=== PATIENT | female | born 1960 | race Caucasian/White ===

== ENCOUNTER 2017-05-28 08:18 | Day surgery (SDC) | payer OTHER ==
--- NOTE | 2017-04-29 18:53 | History and Physical ---
History & Physical Date of Service Apr 29, 2017. History & Physical 56-year-old female presents bronchoscopic evaluation for cough and history of hemoptysis PT presents today for a initial consult visit. She reports her PCP referred her for her COPD. She is still smoking, she says she is cutting back to 5 or less cigarettes a day. She was coughing up blood for months. Says she feels tight for months and feels congested. She is is coughing up yellow colored phlegm she took the last pill of the Zpak yesterday and is still on Bactrim as well as Keflex. 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 She has smoked 1/2 packs of cigarettes a day since her teens and is now down to 5 cigarettes daily. She has become progressively more dyspneic and exhibited hemoptysis sometimes blood being the only thing she sees when she coughs up. She is seen at the [facility]. PFTs from August 2016 suggest minimal obstruction. She is currently on Breo and Spiriva inhaler which she is compliant with. She does have nocturnal oxygen at 2 liters. Alpha-1 antitrypsin has been negative. She was stress testing in October 2016 but never obtained. Denies chest pain currently her sputum is purulent. She has not had a CT scan of the chest. He is extremely dyspneic walking up stairs or a grade makes her extremely symptomatic. She is currently on Bactrim and Keflex for a cellulitis of her hand and also completed a Z-Hugh. She has been on prednisone in the past. She has been tried on nystatin oral solution swish and swallow for oral candidiasis. She is on oral agents for diabetes mellitus. She suffers from depression and bipolar disorder and chronic hepatitis-C. She also uses pantoprazole for reflux.. Chest x-ray on 11/28/2016 shows no acute infiltrate. Left lower lobe pneumonia was suspected in October 2016. Active Problems 1. Anxiety (F41.9) 2. Depression 3. Bipolar disorder 4. Chronic hepatitis C (B18.2) 5. Degeneration of intervertebral disc 6. Depressed bipolar I disorder (F31.9) 7. Drug use (F19.90) 8. Hepatitis B (B19.10) 9. Hyperlipidemia (E78.5) 10. Panic disorder (F41.0) 11. PTSD (post-traumatic stress disorder) (F43.10) 12. Spinal stenosis (M48.00) 13. Asthma 14. COPD 15. On nocturnal oxygen supplementation Social History Current every day smoker (F17.200) Drug use (F19.90) Current Meds 1. Breo Ellipta 200-25 MCG/INH Inhalation Aerosol Powder Breath Activated; INHALE 1 2. Claritin 10 MG Oral Tablet; TAKE ONE TABLET BY MOUTH ONE TIME DAILY; 3. Fluticasone Propionate 50 MCG/ACT Nasal Suspension; USE 2 SPRAYS IN EACH 4. Gabapentin 800 MG Oral Tablet; TAKE 1 TABLET 3 TIMES DAILY; 5. Ipratropium-Albuterol 0.5-2.5 (3) MG/3ML Inhalation Solution; QID 6. MetFORMIN HCl - 500 MG Oral Tablet; TAKE 1 TABLET 3 TIMES DAILY WITH MEALS; 7. Naproxen 500 MG Oral Tablet; TAKE 1 TABLET 3 TIMES DAILY NEEDED; 8. Nystatin 709089 UNIT/GM External Powder; APPLY 2-3 TIMES DAILY TO AFFECTED 9. Pantoprazole Sodium 40 MG Oral Tablet Delayed Release; TAKE ONE TABLET BY 10. Spiriva HandiHaler 18 MCG Inhalation Capsule; INHALE CONTENTS OF 1 CAPSULE 11. Ventolin HFA 108 (90 Base) MCG/ACT Inhalation Aerosol Solution; INHALE 2 PUFFS Allergies 1. meloxicam 2. Morphine Derivatives 3. Penicillins 4. predniSONE Vital Signs Height: 5 ft 5 in Weight: 162 lb 4 oz BMI Calculated: 27 BSA Calculated: 1.81 Blood Pressure: 132 / 84, RUE, Sitting Heart Rate: 83 Respiration: 18 Temperature: 97.8 F O2 Saturation: 97, RA Constitutional General appearance: No acute distress, well appearing and well nourished. Eyes Conjunctiva and lids: No swelling, erythema or discharge. Pupils and irises: Equal, round and reactive to light. Ears, Nose, Mouth, and Throat External inspection of ears and nose: Normal. Otoscopic examination: Tympanic membranes translucent with normal light reflex. Canals patent without erythema. Oropharynx: Normal with no erythema, edema, exudate or lesions. Pulmonary Respiratory effort: No increased work of breathing or signs of respiratory distress. Auscultation of lungs: Abnormal. Distant but scattered rhonchi diffusely. Cardiovascular Palpation of heart: Normal PMI, no thrills. Auscultation of heart: Normal rate and rhythm, normal S1 and S2, without murmurs. Examination of extremities for edema and/or varicosities: Normal. Abdomen Abdomen: Non-tender, no masses. Liver and spleen: No hepatomegaly or splenomegaly. Lymphatic Palpation of lymph nodes in neck: No lymphadenopathy. Musculoskeletal Gait and station: Normal. Digits and nails: Normal without clubbing or cyanosis. Inspection/palpation of joints, bones, and muscles: Normal. Skin Skin and subcutaneous tissue: Normal without rashes or lesions. Neurologic Cranial nerves: Cranial nerves 2-12 intact. Reflexes: 2+ and symmetric. Sensation: No sensory loss. Psychiatric Orientation to person, place, and time: Normal. Mood and affect: Normal.
[~2017-05-28] VITALS: Ht 163.8 cm; Wt 75.0 kg
[2017-05-28] MEDS ORDERED: SPRIN/30 INH (09:17)
[2017-05-28] MEDS ORDERED: NAPR-1169 PO (09:17)
[2017-05-28] MEDS ORDERED: ALBU2SYP9 INH (09:17)
[2017-05-28] MEDS ORDERED: GLC/500 PO (09:17)
[2017-05-28] MEDS ORDERED: FLUT1INH INH (09:17)
[2017-05-28] MEDS ORDERED: IPRASOL4 INH (09:17)
[2017-05-28] MEDS ORDERED: PANT40TA PO (09:17)
[2017-05-28 09:19] VITALS: BP 104/61; PULSE 78; TEMP 37.1; O2SAT 98; Ht 163.8 cm; Wt 75.0 kg
--- NOTE | 2017-05-28 09:57 | Pre Sedation Assessment ---
Pre Sedation Assessment General Date of Sedation: May 28, 2017. Vital Signs Past 12 Hours Date Time Temp Pulse Resp B/P (MAP) Pulse Ox O2 Delivery O2 Flow Rate FiO2 05/28/17 09:19 37.1 78 18 104/61 (75) 98 Room Air Review Cardiovascular: regular rate, rhythm, no edema, no gallop, no JVD, no murmur, normal peripheral pulses Lungs: chest non-tender, lungs clear, normal breath sounds, no respiratory distress, no accessory muscle use Pre-Sedation Airway Assessment Smoking Status: Current Every Day Smoker Hx of Sleep Apnea: No Hx of difficult intubation: No Short Thick Neck: No Thyro-mental Distance: > 3 Finger Breadths Oral Cavity: WNL Mallampati Classification: Class II ASA Classification: Class II NPO Status Date of Last Intake of Fluids: May 27, 2017 Time of Last Intake of Fluids: 2229 Date of Last Intake of Solids: May 27, 2017 Time of Last Intake of Solids: 2229 Procedure Planning Contraindications for Sedation: None Current Medications Reviewed: Yes Notes The planned sedation has been discussed with the patient. Informed Consent was obtained. I have identified the patient, determined the appropriateness of sedation and have assessed the patient immediately prior to the procedure. All medicine(s) and interventions are by my order.
--- NOTE | 2017-05-28 09:57 | History & Physical Bridge Note ---
H&P Re-Evaluation Bridge Note: I have examined the patient, reviewed the History & Physical and in the interval since the performance of the History & Physical I have noted the following changes of clinical significance: No changes noted
[2017-05-28] MEDS ORDERED: ONDANSETRON INJ 2 MG/ML 2 ML VIAL ONE (09:58)
--- NOTE | 2017-05-28 10:49 | Bronchoscopy Procedure Note ---
Bronchoscopy Procedure Note Procedure: Bronchoscopy, conscious sedation, bronchial lavage Consent: Obtained through the patient placed into the chart Pre-procedural diagnosis: Hemoptysis Post-procedural diagnosis: Hemoptysis, chronic rhinitis Start time: 1014 End time: 1045 Total time: 30 minutes Analgesia: 2% liquid lidocaine: Via nebulizer 4% gel lidocaine: Via right naris 2% liquid lidocaine: Via bronchoscopy Sedation: Versed IV: 6mg Fentanyl IV: 100g Procedure: The [employer] [facility] video bronchoscope was used for this procedure and passed down through the oropharynx Bronchoscope was retroflexed off the soft palate and notable postnasal membrane cobblestoning erythema, bilateral nasal erythema edema, no signs of bleeding Bronchoscope was placed into each naris with notable erythema anteriorly as well with no signs of active bleeding Right naris/posterior naris/posterior oropharynx: Anatomically within normal limits, notable posterior oropharyngeal cobblestoning and erythema Glottis: Anatomically within normal limits Vocal cords: Proper abduction and abduction, anatomically within normal limits Subglottis/trachea/Yelena: Anatomically within normal limits Right bronchial tree: Right mainstem bronchus: Anatomically within normal limits Right upper lobe: Anatomically within normal limits Bronchus intermedius: Anatomically within normal limits Right middle lobe: Anatomically within normal limits Right lower lobe: Anatomically within normal limits Findings: No significant findings noted Left bronchial tree: Left mainstem bronchus: Anatomically within normal limits Left upper lobe: Anatomically within normal limits Lingula: Anatomically within normal limits Left lower lobe: Anatomically within normal limits Findings: No significant findings noted Bronchial alveolar lavage: Right middle lobe EBL: None Complications: None Follow-up: [facility]
--- NOTE | 2017-05-28 10:54 | Discharge Instructions ---
Discharge Instructions Date of Service May 28, 2017. Admission Reason for Admission: Copd, Asthma Discharge Discharge Diagnosis / Problem: Chronic rhinitis Discharge Goals Goal(s): Diagnostic testing Activity Recommendations Activity Limitations: resume your previous activity Exercise/Sports Limitations: as tolerated Driving or Machine Use: resume 1 day after discharge . Instructions / Follow-Up Instructions / Follow-Up Follow-up with Dr. Tr Paredes at the pulmonary clinic Current Hospital Diet Patient's current hospital diet: Discharge Diet Recommended Diet: Regular Diet Procedures Procedures Performed: BRONCHOSCOPY, conscious sedation, bronchial lavage Pending Studies Studies pending at discharge: no Medical Emergencies . Who to Call and When: Medical Emergencies: If at any time you feel your situation is an emergency, please call 911 immediately. . Non-Emergent Contact Non-Emergency issues call your: Pe Electrical Engineer Call Non-Emergent contact if: you have a fever, temperature is above 101 . . "Provider Documentation" section prepared by Jose Coffey. .
[2017-05-28] MEDS ORDERED: LIDOCAINE VISCOUS 2% 100ML TOP ONE (10:57)
[2017-05-28] MEDS ORDERED: FENTANYL CITRATE INJ 50 MCG/1 ML 2 ML VIAL IV ONE (10:57)
[2017-05-28] MEDS ORDERED: LIDOCAINE 4% INH SOLN 4 ML BTL TOP ONE (10:57)
[2017-05-28] MEDS ORDERED: LIDOCAINE HCL 2% LOCAL 50ML VIAL INSTIL ONE (10:57)
[2017-05-28] MEDS ORDERED: MIDAZOLAM HCL 5 MG/ML 1 ML VIAL IV ONE (10:57)
[2017-05-28] MEDS ORDERED: ONDANSETRON INJ 2 MG/ML 2 ML VIAL IV ONE (11:01)
[2017-05-28 11:05] VITALS: BP 93/62; PULSE 100; TEMP 36.7; O2SAT 100
[2017-05-28 11:20] VITALS: BP 95/55; PULSE 100; TEMP 36.7; O2SAT 100
[2017-05-28 11:37] VITALS: BP 107/71; PULSE 100; TEMP 36.6; O2SAT 100
[2017-05-28 12:15] VITALS: BP 100/47; PULSE 75; O2SAT 97
[2017-05-28 12:45] VITALS: BP 102/53; PULSE 75; O2SAT 100
== END 2017-05-28 13:33 | disposition home or self-care (01) ==
LOC: C.ACU 08:18
PROVIDERS: ATTEND Internal Medicine Critical Care Medicine
DX: R04.2 Hemoptysis (principal); J31.0 Chronic rhinitis; J44.9 Chronic obstructive pulmonary disease, unspecified; F17.210 Nicotine dependence, cigarettes, uncomplicated; E11.9 Type 2 diabetes mellitus without complications; Z79.84 Long term (current) use of oral hypoglycemic drugs; J45.909 Unspecified asthma, uncomplicated; F19.90 Other psychoactive substance use, unspecified, uncomplicated; Z88.5 Allergy status to narcotic agent; Z88.0 Allergy status to penicillin; Z88.8 Allergy status to other drugs, medicaments and biological substances